=== PATIENT | female | born 2000 | race Caucasian/White ===

== ENCOUNTER 2023-01-19 23:33 | Emergency (ER) | payer BC ==
[2023-01-19] MEDS ORDERED: Albuterol 2.5 MG/0.5 ML NEB ONE (23:50)
[2023-01-19] MEDS ORDERED: Ipratropium/Albuterol 3 ML NEB ONE (23:50)
[2023-01-20] MEDS ORDERED: predniSONE 20 MG TAB ONE (00:06)
== END 2023-01-20 02:28 | disposition home or self-care (01) ==
LOC: CSHERS 23:33
DX: J45.901 Unspecified asthma with (acute) exacerbation (principal); E03.9 Hypothyroidism, unspecified
CPT/HCPCS: 94644; 94760; J7512; J7611; J7620